=== PATIENT | male | born 1950 | race Caucasian/White ===

== ENCOUNTER 2018-12-17 11:49 | Outpatient (CLI) | payer MEDICARE, OTHER ==
--- NOTE | 2018-12-17 12:55 | ULT ---
Renal ultrasound. HISTORY: Chronic renal insufficiency. Multiple longitudinal and transverse images of the kidneys and bladder is obtained using multi hertz curvilinear transducer. Real-time and color flow images are obtained. Both kidneys are of normal contour accident size. Right kidney measures 11.8 and left kidney 13.3 cm from pole to pole. No evidence of hydronephrosis or masses seen. The urinary bladder is unremarkable. IMPRESSION: Normal renal ultrasound.
== END 2018-12-17 11:50 | disposition home or self-care (01) ==
LOC: ULT 11:49
PROVIDERS: ATTEND Internal Medicine Nephrology
DX: I12.9 Hypertensive chronic kidney disease with stage 1 through stage 4 chronic kidney disease, or unspecified chronic kidney disease (principal); N18.3 Chronic kidney disease, stage 3 (moderate)
CPT/HCPCS: 76770

== ENCOUNTER 2020-03-29 11:41 | Inpatient (IN) | payer MEDICARE ==
[~2020-03-29 11:41] MED LIST: Iopamidol-370 76% 500 ML 1 ML ONE
[2020-03-29] MEDS ORDERED: Lorazepam 2 MG/ML VIAL ONE (11:57)
[2020-03-29] MEDS ORDERED: Cefepime 2 GM VIAL ONE (11:57)
[2020-03-29] MEDS ORDERED: Vancomycin 1 GM/200 ML BAG ONE (11:57)
[2020-03-29] MEDS ORDERED: Propofol 1,000 MG/100 ML VIAL IV ONE (12:13)
--- NOTE | 2020-03-29 12:26 | RAD ---
RADIOGRAPH CHEST 1 VIEW: DATE: 03/29/2020 TIME: 12:15 PM HISTORY: 70-year-old male with respiratory failure COMPARISON: 03/29/2020 10:35 AM FINDINGS: This is a supine image, which would be insensitive for pneumothorax detection. Endotracheal tube remains. Dense opacification of most of left lower lobe remains. Apparent interval worsening of bilateral central, perihilar airspace densities. New region of airspace density at left midlung zone. IMPRESSION: 1) interval worsening of central parahilar infiltrates, and especially in the left mid-lung zone. 2) consolidation of left lower lobe remains.
[2020-03-29] MEDS ORDERED: Fentanyl 100 MCG/2 ML VIAL ONE ×3 (12:50→14:23)
[2020-03-29 12:58] LABS: Actual Bicarbonate (HCO3a) 23.2 mEq/L (22-28); Analyzer IN Cardio ER; Base Excess (BEa) -2.5 mEq/L (-2.0 to +3.0); CO2 Tension 43.8 mmHg (35.0-45.0); Calcium, Ionized (arterial) 1.18 mmol/L (1.12-1.30); Carboxyhemoglobin (COHb) 0.3 gm% (0.0-3.0); Hemoglobin (Hb) 12.4 g/dL (14.0-18.0); O2 Tension (PaO2), arterial 81.8 mmHg (> 80.0); Potassium - ABG Lab 4.99 mmol/L (3.70-5.30); pH, Arterial 7.34 (7.35-7.45)
[2020-03-29 13:03] LABS: Puncture Site LRA
--- NOTE | 2020-03-29 13:05 | CT ---
CT BRAIN: DATE: 03/29/2020. PROVIDED CLINICAL HISTORY: Unresponsive. FINDINGS: No comparisons. The ventricular system appears normal in size and morphology. There is no evidence for intracranial hemorrhage or mass effect. There is partial opacification of the ethmoid air cells and fluid levels seen involving the sphenoid sinus. The extracranial soft tissues and osseous struct ures appear otherwise unremarkable. IMPRESSION: 1. No evidence for intracranial hemorrhage or mass effect. 2. Paranasal sinus mucosal disease with findings suggesting acute sinusitis. POS: PIERRE
[2020-03-29 13:07] LABS: SARS-CoV-2 NAA Rapid Test Not Detected (NotDetected)
--- NOTE | 2020-03-29 14:13 | PDOC.FPRHP ---
- History of Present Illness Chief Complaint: Witnessed arrest, S/P ROSC History of Present Illness: This is 70 yo male with a pmh of stroke with persistent dysphagia & PEG tube, DM2, who presented initially to [facility] with a cc of SOB. At that facility, he had a witnessed cardiac arrest. CPR was immediately initiated and he received epi, calcium, and bicarb. After ~15 minutes, the ER achieved ROSC and put him on an epi drip due to his pressures. He was then transferred to [facility] and here received IV fluid boluses, Keppra 1g, Cefepime 2g, Vancomycin 1g. He has been weaned off of the epi drip and his ABG is improved post intubation. He received the keppra for myoclonic jerks. Patient is intubated at time of exam. Brother (Mukul Dixon) was called and he states patient is not in great condition at baseline but doesn't know any of his medical conditions aside from what is listed. He doesn't know his PCP or any further details. Denies hx of seizure, [place]. States he has poorly controlled diabetes. ED Course: Was given 2g cefepime, vancomycin, 1 amp of bicarb, 1000mg keppra - Allergies/Adverse Reactions Allergies Allergy/AdvReac Type Severity Reaction Status Date / Time No Known Allergies Allergy Unverified 03/29/20 15:25 - History PMHx: DM2, hx of CVA PSHx: Peg tub placement FHx:No history of clots Social: Lives at home - Review of Systems ROS unobtainable: due to endotracheal tube - Vital signs BP: 101/54 HR: 87 RR: 18 Tmax: 98.5 Pox: 97% on Vent Wt: 113 - Physical Exam Constitutional: other (Intubated, sedated, GCS [id number]) HEENT: normocephalic and atraumatic, other (Pupils 3mm, nonreactive) Neck: trachea midline Chest: other (Signs of nati compression machine on chest) Heart: RRR, normal S1/S2, other (1+ pitting edema) Lungs: other (Coarse breath sounds) Abdomen: other (Distended, hypoactive bowel sounds, peg tube in place, no rashes ) Musculoskeletal: other (normal structure, swelling in BLE, Bandage on right knee from IO) Neurological: other (No neurological response) Skin: capillary refill <2 seconds Heme/Lymphatic: no petechia -Heme/Lymphatic: right remoral line in place FMR H&P: Results - Labs Lab results: ABG pH 7.34 (7.35-7.45) L 03/29/20 12:57 ABG pCO2 43.8 mmHg (35.0-45.0) 03/29/20 12:57 ABG pO2 81.8 mmHg (> 80.0) H 03/29/20 12:57 Lactic Acid 2.2 mmol/L (0.5-2.2) 03/29/20 12:01 - Radiology Interpretation Chest x-ray Status: image reviewed by me, report reviewed by me Additional comment: Left lower lobe consolidation Perihilar congestion CT scan - chest Status: image reviewed by me, report reviewed by me (CTA chest negative for PE, bilateral pleural effusions present.) FMR H&P: A/P - Plan Cardiac Arrest s/p ROSC on mechanical ventilation -Etiology unknown, no identified source -S/P Vancomycin 1g, Cefepime 2g, Keppra 1g, propofol drip, NS 1L, LR 1L -CT brain negative, CXR with lower lobe consolidation-will obtain procal, continue abx, pending cultures -Lactic acid 2.2, Troponin 0.09, WBC 14.8, BNP 339 -Admit to ICU, pulm on board Monoclonic jerks -Poor prognosis, consult palliative -EEG pending DM2 -Diabetic protocols per orders -Will initiate NPH for glucose control Hx of CVA with persistent dysphagia & PEG tube -Stable Diabetic foot infection -Wound care MPOA (Brother): Mukul Dixon- [phone] Code: Full Prophylaxis: pepcid and lovenox Diet: NPO Fluids: LR 125ml/hr Admit: ICU LOS: >2 midnights Lines: Right femoral line, perpipheral line, ETT Abx: Cefepime & Vanc Addendum - Attending - Attending Attestation Date/Time: 03/29/20 1141 I personally evaluated the patient and discussed the management with Dr. Ardon. I agree with the History, Examination, Assessment and Plan documented above with any addition or exceptions noted below. Patient here with acute onset shortness of breath that resulted in cardiac arrest s/p ROSC in outside ED. Patient with PMH of CVA with PEG tube, as well as DM with an active foot wound. After ROSC achieved, myoclonic jerking noted on exam. Labs reveal initial profound acidemia that corrected with resuscitative measures. His labs overall do not point towards any major cause. CTA negative for PE. Unknown what his initial non-perfusing rhythm was. Patient will be admitted to CCU for Cardiac Arrest s/p ROSC. EEG obtained now due to concern for severe anoxic brain injury with his myoclonic jerking. Vent mgmt per Pulm. Broad spectrum abx for now though no obvious source of infection, cultures pending. Case discussed with family. Guarded to poor prognosis.
--- NOTE | 2020-03-29 15:24 | CT ---
Exam: CT angiogram of the chest HISTORY: Shortness of breath. Syncope. Collapse. COMPARISON: None TECHNIQUE: CT angiogram of the chest is performed in the axial plane. Three-dimensional reformatted i mages are submitted for interpretation FINDINGS: Mediastinum: Enlarged right paratracheal lymph node with preserved fatty hilum measuring 2.0 x 1.3 cm . Enlarged right paratracheal lymph node measuring 1.9 x 0.8 cm. HEART: Normal size. No significant pericardial fluid. Aorta: No aneurysm or dissection Upper solid abdominal viscera: No abnormality enhancement. Trachea and central bronchi: Patent. Endotracheal tube is noted. Pleural spaces: Moderate bilateral pleural effusions. Lung parenchyma: Bilateral lower lobe consolidation due to atelectasis, pneumonia or aspiration. Ther e are additional patchy groundglass opacities with a somewhat more peripheral distribution. Edema or atypical infiltrate, including COVID 19 is a differential consideration. Pneumothorax: None Osseous structures: No lytic or blastic lesions Pulmonary arteries: Adequate contrast opacification pulmonary arterial system to the level of segment al arteries. No filling defect to suggest pulmonary embolism IMPRESSION: 1. No evidence of pulmonary artery and wasn't to the level of the segmental arteries 2. Bilateral pleural effusions, moderate 3. Bibasilar consolidation due to atelectasis, pneumonia or aspiration. There are additional patchy p eripheral groundglass opacities. Correlate for atypical infection included COVID 19 versus edema. 4. Enlarged mediastinal lymphadenopathy
[2020-03-29] MEDS ORDERED: Propofol 1,000 MG/100 ML VIAL IV PRN (15:25)
[2020-03-29] MEDS ORDERED: DISCONTINUE PREVIOUS NARCOTIC PAIN MEDICATIONS AND BENZODIAZEPINES FS SCH ×2 (15:25→15:49)
[2020-03-29] MEDS ORDERED: Fentanyl BOLUS 250 ML IVPB PRN ×2 (15:25→15:49)
[2020-03-29] MEDS ORDERED: fentaNYL Citrate/PF 2,000 MCG in Sodium Chloride 0.9% 60 ML IV SCH ×2 (15:25→15:49)
[2020-03-29] MEDS ORDERED: Morphine 2 MG/ML VIAL SLOW IVP PRN ×2 (15:25→15:49)
[2020-03-29] MEDS ORDERED: Lorazepam 2 MG/ML VIAL SLOW IVP PRN (15:25)
[2020-03-29] MEDS ORDERED: Propofol BOLUS 1,000 MG/100 ML VIAL IV PRN ×2 (15:25→15:49)
[2020-03-29] MEDS ORDERED: Dextrose 50% Abboject 50 ML SYRINGE SLOW IVP PRN (15:30)
[2020-03-29] MEDS ORDERED: Electrolyte Replacement Protoc 1 EACH EACH FS PRN (15:30)
[2020-03-29] MEDS ORDERED: Ondansetron PF 4 MG/2 ML Vial IVP PRN (15:30)
[2020-03-29] MEDS ORDERED: Acetaminophen 650 MG Suppository PR PRN (15:30)
[2020-03-29] MEDS ORDERED: Ventilator Sedation Protocol 1 EACH FS ONE (15:30)
[2020-03-29] MEDS ORDERED: HumaLOG 300 UNITS/3 ML VIAL SC PRN ×2 (15:30)
[2020-03-29] MEDS ORDERED: Acetaminophen 325 MG TAB PO PRN (15:30)
[2020-03-29] MEDS ORDERED: Dextrose 5% in Water 1,000 ML IV PRN (15:30)
[2020-03-29] MEDS ORDERED: Ondansetron ODT 4 MG TAB PO PRN (15:30)
[2020-03-29 15:37] VITALS: BMI 31.8
[2020-03-29] MEDS ORDERED: Lactated Ringer's 1,000 ML IV SCH (15:45)
--- NOTE | 2020-03-29 15:45 | CT ---
CT ABDOMEN AND PELVIS WITH IV CONTRAST: HISTORY: Shortness of breath, respiratory failure. FINDINGS: There is consolidation/atelectatic changes in the left lower lobe. A right-sided pleural effusion is present. No free air is seen in the abdomen or pelvis. There is a tiny amount of free fluid in the pelvis. T he liver, spleen, pancreas, and adrenal glands are unremarkable. No calcified gallstones are seen. There are nonobstructing bilateral renal calculi. No calculi are seen in the ureters or the urinary bladder. There is a Booth catheter in a decompressed urinary bladder with air within the urinary mary dder. No lymphadenopathy is seen. There are vascular calcifications without evidence of aneurysmal dilatation of the abdominal aorta. A normal-appearing appendix is present. There are degenerative c hanges in the spine. A PEG tube is seen in the stomach. There are small fat-containing bilateral in guinal herniae. IMPRESSION: 1. Nonobstructing tiny bilateral renal calculi. 2. A tiny amount of free fluid in the pelvis. POS: OFF
--- NOTE | 2020-03-29 15:57 | CON ---
DATE OF CONSULTATION: 03/29/2020 CONSULTING PHYSICIAN: Domingo Lopez MD REASON FOR CONSULTATION: The patient is intubated and on mechanical ventilation. HISTORY OF PRESENT ILLNESS: The patient is a 70-year-old male, who apparently was at Wound Care in [place] today. It is not clear to me what he was receiving wound care for he was taken over to the emergency room at [facility]. There, he had an arrest. He was down for about 20 minutes. I am not sure what his initial rhythm was since being resuscitated. The patient has had myoclonic jerking. An etiology of his arrest has not been discovered, but he is pending a CT pulmonary angiogram evaluation. PAST MEDICAL HISTORY: At the time of this dictation, there is no past medical history available. PAST SURGICAL HISTORY: It appears he has had a PEG tube placed in the past. ALLERGIES: NONE LISTED. OUTPATIENT MEDICATIONS: Unknown. FAMILY MEDICAL HISTORY: Unknown. PHYSICAL EXAMINATION: VITAL SIGNS: Temperature 98.5, pulse in the 80s, O2 saturation 98% on mechanical ventilation, blood pressure 150/78, and O2 saturation around 100%. GENERAL: He is an unkempt male who is intubated. He is currently receiving some propofol. He received a dose of succinylcholine 100 mg when he was intubated. He was not received anything in several hours. HEENT: He has 4-mm unreactive pupils. Oropharynx, no gag. NECK: No adenopathy or JVD. LUNGS: Bilateral end-expiratory wheezing. CARDIOVASCULAR: S1 and S2 with a summation gallop. ABDOMEN: He has a midline PEG tube in place. He has bruising above that which apparently is from the CPR machine. EXTREMITIES: No clubbing, cyanosis, or edema. LABORATORY DATA: ABG; pH of 7.34, pCO2 of 43, pO2 of 81 on SIMV rate 16, tidal volume 500, PEEP 5, pressure support 10, and FiO2 of 80%. Lactate 2.2. Troponin 0.093. COVID test negative. White blood cell count 14.8, hematocrit 36.2, and platelet count 137, with 30% neutrophils, 2% bands, and 59% lymphocytes. INR 1.1, PTT 27.1. Sodium 139, potassium 4.7, chloride 105, CO2 of 20, BUN 26, creatinine 1.8, and glucose 181. BNP 339. IMAGING DATA: Brain CT demonstrated no evidence of stroke or infarct. Chest x-ray demonstrated bilateral pulmonary edema. An ET tube that is in the trachea. Evidence of cardiomegaly and pulmonary edema. ASSESSMENT: 1. Status post cardiopulmonary arrest, etiology not known at this point. Suspect based on the x-ray that he has acute systolic heart failure. I am not sure whether he had arrhythmia that led to this. His troponin is not indicative of ischemia. 2. Rule out pulmonary embolism given the suddenness of the arrest. PLAN: I have reviewed the orders. We are going to do a CT pulmonary angiogram. He is being covered with antibiotic therapy. He is being covered with insulin. I would suggest Neurology consultation tomorrow. The fact that he is having myoclonic jerking is a predictor of poor outcome. The above encompassed 35 minutes of critical care time. Job ID: [id number]
[2020-03-29 16:04] LABS: Lactic Acid 1.5 mmol/L (0.5-2.2)
[2020-03-29 16:16] LABS: Troponin I 0.321 ng/mL (< 0.028)
--- NOTE | 2020-03-29 16:50 | EEG ---
DATE OF SERVICE: 03/29/2020 ATTENDING PHYSICIAN: Aziza Parker MD This EEG was performed using 24-channel [employer] video digital EEG machine with 24- disk electrodes. This was a routine EEG recording. BACKGROUND: The posterior background rhythm was not observed. HYPERVENTILATION: Not performed. PHOTIC STIMULATION: Not performed. SLEEP: No stage change was observed. SPELLS: Myoclonic jerks involving both upper and lower extremities associated with epileptic high-amplitude spikes, seen during the EEG recording. EEG DIAGNOSES: 1. Periods of 4 to 6-second suppression alternating with high-amplitude bursts intermixed with spikes lasting for about 0.5 seconds, seen throughout the recording. 2. Absence of posterior background rhythm. 3. Bursts intermixed with spikes did correlate with myoclonic jerks. CLINICAL INTERPRETATION: This EEG is consistent with severe generalized nonspecific cerebral dysfunction. Burst suppression pattern is seen with anoxic brain injury. Clinical correlation is advised. Propofol was turned off briefly during the EEG recording, and the patient continued to have a burst suppression pattern. 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 Critical findings were discussed with the primary attending, Dr. Tate. Job ID: [id number] MTDD
[2020-03-29] MEDS: Lactated Ringer's 1,000 ML IV SCH (17:31)
[2020-03-29] MEDS: Propofol 1,000 MG/100 ML VIAL IV PRN ×2 (17:33→22:48)
[2020-03-29] MEDS ORDERED: Enoxaparin Sodium 120 MG/0.8 ML SYRINGE SC SCH (17:45)
[2020-03-29 18:11] LABS: CKMB 9.3 ng/mL (0-6.6)
[2020-03-29] MEDS ORDERED: Enoxaparin Sodium 40 MG/0.4 ML SYRINGE SC SCH (21:00)
[2020-03-30] MEDS: Lactated Ringer's 1,000 ML IV SCH ×3 (00:09→14:29)
[2020-03-30] MEDS: Cefepime 2 GM in Sodium Chloride 0.9% 100 ML IVPB SCH ×2 (00:09→11:55)
[2020-03-30] MEDS: Lorazepam 2 MG/ML VIAL SLOW IVP PRN ×2 (01:47→03:36)
[2020-03-30 03:47] LABS: #Monocytes 0.4 thou/uL (0.11-0.59); #Neutrophils 6.5 thou/uL (1.40-6.50); %Basophils 0.4 % (0.0-1.0); %Eosinophils 0.2 % (0.0-10.0); %Lymphocytes 13.1 % (21.0-51.0); %Monocytes 5.2 % (0.0-10.0); %Neutrophils 81.1 % (42.0-75.0); Hemoglobin 10.7 g/dL (14.0-18.0); Mean Corpuscular HGB CONC 30.3 g/dL (32.0-36.0); Mean Corpuscular Hemoglobin 26.5 pg (27.0-31.0); Mean Corpuscular Volume 87.3 fL (78.0-98.0); Mean Platelet Volume 7.9 fL (7.4-10.4); Platelet Count 134 thou/uL (130-400); RBC Distribution Width 14.2 % (11.5-14.5); Red Blood Cell (RBC) Count 4.03 mill/uL (4.70-6.10)
[2020-03-30] MEDS: Acetaminophen 650 MG/20.3 ML UDCUP PO PRN ×2 (04:06→09:42)
[2020-03-30 04:35] LABS: ALT (SGPT) 27 U/L (8-55); AST (SGOT) 25 U/L (5-34); Albumin 3.2 g/dL (3.4-4.8); Alkaline Phosphatase 62 U/L (40-110); Anion Gap 14 mmol/L (10-20); BUN (Urea Nitrogen) 32 mg/dL (8.4-25.7); Bilirubin, Total 0.6 mg/dL (0.2-1.2); Calc. Creatinine Clearance 54 mL/min (70-130); Calcium 8.5 mg/dL (7.8-10.44); Carbon Dioxide 25 mmol/L (23-31); Chloride 105 mmol/L (98-107); Estimated GFR-MDRD 33; Glucose 138 mg/dL (80-115); Potassium 5.1 mmol/L (3.5-5.1); Protein, Total 6.2 g/dL (5.8-8.1); Sodium 139 mmol/L (136-145)
[2020-03-30] MEDS: Propofol 1,000 MG/100 ML VIAL IV PRN ×2 (05:02→12:38)
--- NOTE | 2020-03-30 07:07 | PDOC.FM ---
- Subjective Subjective: Intubated and sedated. - Objective MAR Reviewed: Yes Vital Signs & Weight: Vital Signs (12 hours) Temp Pulse Resp 03/30/20 06:00 21 H 03/30/20 05:00 100.4 F H 03/30/20 04:00 103.1 F H 22 H 03/30/20 03:43 107 H 03/30/20 02:00 25 H 03/30/20 00:53 101 H 03/30/20 00:00 98.2 F 23 H 03/29/20 22:13 98 03/29/20 22:00 23 H 03/29/20 21:00 97.6 F 03/29/20 20:00 97.6 F 22 H Weight Weight 109.3 kg Most Recent Monitor Data Heart Rate from ECG 104 NIBP 113/66 NIBP BP-Mean 81 Respiration from ECG 22 SpO2 97 I&O: 03/29/20 03/30/20 03/31/20 06:59 06:59 06:59 Intake Total 2339 Output Total 1410 Balance 929 Result Diagrams: 03/30/20 03:05 03/30/20 03:05 Phys Exam - Physical Examination Constitutional: NAD Pupils fixed. No corneal reflex. Neck: supple Respiratory: no wheezing, no rales, no rhonchi, clear to auscultation bilateral Cardiovascular: RRR Gastrointestinal: soft Musculoskeletal: pulses present Skin: normal turgor Dx/Plan (1) Sudden cardiac arrest Code(s): I46.9 - CARDIAC ARREST, CAUSE UNSPECIFIED Status: Acute (2) Signs of return of spontaneous circulation Code(s): HMK9284 - Status: Acute (3) Type 2 diabetes mellitus Status: Acute (4) H/O: CVA (cerebrovascular accident) Code(s): Z86.73 - PRSNL HX OF TIA (TIA), AND CEREB INFRC W/O RESID DEFICITS Status: Acute - Plan Plan: Cardiac Arrest s/p ROSC on mechanical ventilation -CT brain negative, CXR with lower lobe consolidation. EEG shows signs of anoxic brain injury with myoclonic jerking. -Procal 0.19. Vanc and Cefepime 03/29. -Admit to ICU, pulm on board. -Will consult PC team. Plan to have family discussion today with goals of care. -Will discuss case with neurology in regards to EEG results. DM2 -Diabetic protocols per orders -Will initiate NPH for glucose control Hx of CVA with persistent dysphagia & PEG tube -Stable Diabetic foot infection -Wound care MPOA (Brother): Mukul Dixon- [phone] Code: Full Prophylaxis: pepcid and lovenox Diet: NPO Fluids: LR 125ml/hr Admit: ICU LOS: >2 midnights Lines: Right femoral line, perpipheral line, ETT Abx: Cefepime & Vanc Addendum - Attending - Attending Attestation Date/Time: 03/30/20 [id number] I personally evaluated the patient and discussed the management with Dr. Ho. I agree with the History, Examination, Assessment and Plan documented above with any addition or exceptions noted below. Patient with evidence for severe and non-recoverable anoxic brain injury. Continues to have myoclonic jerking. Pulm on board for vent mgmt. No PE. Family conversation about withdrawal of care as no chance for meaningful recovery.
--- NOTE | 2020-03-30 07:59 | PRG ---
DATE OF SERVICE: 03/30/2020 35 minutes of critical care time. SUBJECTIVE: The patient remains intubated on mechanical ventilation. OBJECTIVE: VITAL SIGNS: His temperature is 100.4 with a T-max of 103.1, pulse 104, blood pressure 113/66, O2 saturation 97%. His intake has been 2339 mL, output 1410 mL. NEUROLOGIC: Remarkable for diffuse myoclonic jerking activity especially around his mouth. HEENT: Otherwise, unremarkable. NECK: No JVD. LUNGS: Coarse breath sounds. CARDIOVASCULAR: S1 and S2 regular without audible murmur. ABDOMEN: Soft. EXTREMITIES: No edema. LABORATORY DATA: Sodium 139, potassium 5.1, chloride 105, CO2 of 25, BUN 32, creatinine 2.0, and glucose 138. ABG is pending. White blood cell count 8, hematocrit 35.1, and platelet count 134. DIAGNOSTIC DATA: His chest x-ray shows bilateral infiltrates, left upper lobe and right middle lobe area. ASSESSMENT: 1. Status post cardiopulmonary arrest with evidence of severe anoxic brain injury as demonstrated by the myoclonic jerking activity. This in itself portends to an extremely poor prognosis for functional recovery. 2. No evidence of pulmonary embolism. 3. Non-Q myocardial infarction. 4. Evidence of aspiration pneumonitis. RECOMMENDATIONS: 1. This patient's prognosis for survival is dismal. I would suggest discussions with family in regard to discontinuing of life support. 2. For now, he is continuing ventilation, antibiotics, etc. Job ID: [id number]
--- NOTE | 2020-03-30 08:24 | RAD ---
PORTABLE CHEST 1 VIEW: Date: 03/30/2020 Time: 0436 hours HISTORY: Respiratory failure. FINDINGS/IMPRESSION: Mild interval worsening of the bibasilar infiltrates has occurred since the previous day's exam. Endo tracheal tube remains in place. The heart size is enlarged. No pneumothoraces or large effusions are seen. POS: OFF
[2020-03-30] MEDS ORDERED: Famotidine/PF 20 mg/2ml Vial SLOW IVP SCH (09:00)
[2020-03-30] MEDS ORDERED: Enoxaparin Sodium 40 MG/0.4 ML SYRINGE SC SCH (09:00)
[2020-03-30] MEDS ORDERED: Prevnar 13-Val Conj/PF 0.5 ML SYRINGE IM ONE (09:00)
--- NOTE | 2020-03-30 12:43 | PDOC.EVN ---
Event Note - Event Note Event Note: Spoke with brother, Mukul RO. After family discussion, they have decided to make him DNAR. We will change code status. Family meeting arranged for niki.
[2020-03-30] MEDS ORDERED: Vancomycin HCl 1.75 GM in Sodium Chloride 0.9% 500 ML IVPB SCH (13:00)
[2020-03-30 15:37] VITALS: BP 149/72
[2020-03-30 16:21] VITALS: TEMP 100.4
[2020-03-30] MEDS ORDERED: Morphine 10 MG/ML VIAL SLOW IVP PRN (18:17)
[2020-03-30] MEDS ORDERED: Lorazepam 2 MG/ML VIAL SLOW IVP SCH (18:30)
[2020-03-30] MEDS ORDERED: Scopolamine 1.5 mg/72 hour Patch TD SCH (18:30)
--- NOTE | 2020-03-30 21:14 | PDOC.EVN ---
Event Note - Event Note Event Note: note: Patient here s/p cardiac arrest s/p ROSC with subsequent anoxic brain injury. After family meeting earlier today, decision to extubate was made. Patient extubated with family at the bedside at 1940. Time of 1949. Time of called by charge nurse Judy Santos. Notified of time of at 1952. Spoke with Juancarlos Huff, PGY1; Lucille Caballero , PGY3. certificate to go to Dr. Jose Juan Wilson. summary to be done by Mirian Ho, PGY2.
--- NOTE | 2020-03-31 23:10 | PQF ---
Dear : Jose Juan Ordoñez Date : 03/31/20 Please exercise your independent, professional judgment in responding to the clarification form. Clinical indicators are provided on the bottom of this form for your review Can you please further clarify the diagnosis of the patient? Please check appropriate box(es): [ ] Acute Respiratory Failure: [ ] with Hypoxia [ ] with Hypercapnia [ ] Acute On Chronic Respiratory Failure: [ ] with Hypoxia [ ] with Hypercapnia [ ] Acute Respiratory Failure due to: (etiology) [ ] ARDS (Acute Respiratory Distress Syndrome) [ ] Other diagnosis [ ] Unable to determine Physician Signature: Date/Time: For continuity of documentation, please document condition throughout progress notes and discharge summary. Thank You. To be completed by CDI/Coding staff for physician review: Present Clinical Indicators - Signs / Symptoms / Labs Results and Location in Medical Record [ x ] Presents for evaluation of cardiac arrest ED Provider pg.1 [ x ] Respiratory failure ED Provider pg.3 [ x ] Chief complaint of SOB H and P pg.1 [ x ] PE: Lungs (coarse breath sounds) H and P pg.2 [ x ] Blood gas: ABG pH 7.34L, pO2 81.8H, bMS014.8, O2 sat 93.1L, Laboratory [ x ] CXR with lower lobe consolidation Family med PN pg.3 Present Risk Factors Results and Location in Medical Record [x ] DM2 H and P pg.1 [ x ] Stroke with dysphagia H and P pg.1 [ x ] Cardiac arrest H and P pg.1 [ x ] Severe anoxic brain injury H and P pg.3 [ x ] Evidence of aspiration pneumonitis PN 03/30 pg.1 [ x ] Non- Q myocardial infarction PN 03/30 pg.1 [ x ] 70 years old H and P pg.1 Present Treatments Results and Location in Medical Record [ x ] Mechanical ventilation ED Provider pg.1 [ x ] Monitoring of oxygenation status Vitak signs [ x ] Chest X ray 03/29 Chest X ray Folder 03/29 [ x ] Chest/Thorax CTA Chest/Thorax CTA Folder 03/29 [ x ] Pulmonary Consult Dr. Tate Consult 03/29 [ x ] Vancomycin 1 gm IV MAR [ x ] Cefepime 2gm IV MAR [ x ] IV Fluids MAR CDS/Shoer Signature: Mark Velásquez Phone #: ext [phone] Date: 03/31/20 Acute Respiratory Failure: ABG pH < 7.35 or > 7.45; Decreased oxygen saturation (<90% room air or < 95% on oxygen); PCO2 > 50 mm Hg; PO2 < 60 mm Hg; Labored or rapid respirations ARDS: Dx Criteria [Erwin ARDS]: Respiratory symptoms within one week of a known clinical insult (e.g. shock, infection, surgery, trauma) Bilateral opacities in CXR/Chest CT not due to CHF or fluid This is a permanent part of the Medical Record [facility]
--- NOTE | 2020-04-01 02:26 | DIS ---
DATE OF ADMISSION: 03/29/2020 DATE OF DISCHARGE: 03/30/2020 DATE OF : 03/30/2020. TIME OF : 1952 hours. RESIDENT: Mirian Ho MD DISCHARGE ATTENDING: Jose Juan Wilson MD. CAUSE OF : Anoxic brain injury, status post cardiac arrest. SECONDARY DIAGNOSES: 1. Type 2 diabetes. 2. History of cerebral vascular accident with persistent dysphagia and percutaneous endoscopic gastrostomy tube. 3. Diabetic foot infection. HPI/HOSPITAL COURSE: Mr. Dixon was a 70-year-old male with a past medical history of stroke and has residual dysphagia, and subsequently a PEG tube, type 2 diabetes and diabetic foot infection who presented to [facility] with a chief complaint of shortness of breath. During this time, he had a witnessed cardiac arrest. CPR was immediately initiated and he received epi, calcium and bicarb. After 15 minutes, he acheived return of spontaneous circulation and he was placed on an epi drip to increase his blood pressure. He was transferred to [facility] in [place] and put on supportive measures. Pulmonology was consulted as well as Neurology and EEG was done on 03/29, which showed generalized nonspecific cerebral dysfunction with burst suppression pattern as seen in anoxic brain injury. On evaluation, the patient had no reflexes, no gag reflex. Pupillary light reflex or corneal reflex. Family was consulted and palliative care measures were taken. The patient was compassionately extubated at approximately 1940 hours on March 30 and he subsequently passed at 1953 hours. Job ID: [id number] MTDD
== END 2020-03-30 21:37 | disposition expired | DRG 208 ==
LOC: ERS 11:41 → CCU 11:48
PROVIDERS: ADMIT Student in an Organized Health Care Education/Training Program; ATTEND Student in an Organized Health Care Education/Training Program
PROC: 3E033XZ Introduction of Vasopressor into Peripheral Vein, Percutaneous Approach (ICD-10-PCS; principal; 2020-03-29)
PROC: 5A1935Z Respiratory Ventilation, Less than 24 Consecutive Hours (ICD-10-PCS; 2020-03-29)
DX: J69.0 Pneumonitis due to inhalation of food and vomit (principal); R40.2112 Coma scale, eyes open, never, at arrival to emergency department; I21.4 Non-ST elevation (NSTEMI) myocardial infarction; R40.2212 Coma scale, best verbal response, none, at arrival to emergency department; R40.2312 Coma scale, best motor response, none, at arrival to emergency department; I50.21 Acute systolic (congestive) heart failure; G93.1 Anoxic brain damage, not elsewhere classified; E87.2 Acidosis; Z66 Do not resuscitate; I46.9 Cardiac arrest, cause unspecified; E11.40 Type 2 diabetes mellitus with diabetic neuropathy, unspecified; R13.10 Dysphagia, unspecified; E11.65 Type 2 diabetes mellitus with hyperglycemia; E11.621 Type 2 diabetes mellitus with foot ulcer; L97.519 Non-pressure chronic ulcer of other part of right foot with unspecified severity; G25.3 Myoclonus; Z88.8 Allergy status to other drugs, medicaments and biological substances; Z79.82 Long term (current) use of aspirin; Z79.899 Other long term (current) drug therapy; Z79.4 Long term (current) use of insulin; I69.991 Dysphagia following unspecified cerebrovascular disease; Z93.1 Gastrostomy status
CPT/HCPCS: 36415; 36416; 70450; 71045; 71275; 74177; 80053; 82805; 83605; 84145; 85025; 87077; 87086; 87186; 93005; 94002; 94003; 95816; 95819; 96365; 96366; 96367; 96375; 96376; 99292; J0692; J1650; J1953; J2060; J2704; J3010; J3370; J3490; J7030; J7120; Q9967; S0028; U0002